=== PATIENT | female | born 2000 | race African-American/Black ===

== ENCOUNTER 2022-08-07 07:44 | Emergency (ER) | payer SELFPAY ==
[2022-08-07] MEDS ORDERED: Lidocaine 1% 5 ML VIAL INJECT ONE (08:14)
== END 2022-08-07 08:38 | disposition home or self-care (01) ==
LOC: MW.ED 07:44
DX: N75.1 Abscess of Bartholin's gland (principal)
CPT/HCPCS: 10060; 56420; 99282; 99283; J3490

== ENCOUNTER 2024-11-22 17:45 | Emergency (ER) | payer SELFPAY | END 2024-11-22 18:39 | disposition home or self-care (01) | LOC: MW.ED 17:45 | DX: J32.9 Chronic sinusitis, unspecified (principal); F17.200 Nicotine dependence, unspecified, uncomplicated | CPT/HCPCS: 99282; 99283 ==